=== PATIENT | female | born 1935 | race Caucasian/White ===

== ENCOUNTER → 2017-07-28 | Outpatient (CLI) | payer OTHER ==
[~2017-07-28] MED LIST: ACETAMINOPHEN PM PO; AMLO5 PO; Aspir 8181 MG PO; CALC.25 PO; CHOL10002 PO; CLON.2 PO; ENOX30I SC; FURO40 PO; FURO80 PO; Hydrocodone-Ap1 EA26 PO; LOSA50 PO; Labetalol HCl300 MG PO; MULVITMIND PO; Micro-K10 MEQ PO; STOOL SOFTENER1 EAC4 PO; Zofran4 MG PO
== END ==
LOC: LAB 15:50 → LAB SHORT 15:50
DX: R25.2 Cramp and spasm (principal); M25.50 Pain in unspecified joint
CPT/HCPCS: 84550

== ENCOUNTER 2018-05-09 08:33 | Day surgery (SDC) | payer MEDICARE ==
[~2018-05-09 08:33] MED LIST changes: +WARF5 PO
== END 2018-05-09 23:16 | disposition home or self-care (01) ==
LOC: MOI MAM 08:33
PROC: 0HBT3ZX Excision of Right Breast, Percutaneous Approach, Diagnostic (ICD-10-PCS; principal; 2018-05-09)
DX: N60.21 Fibroadenosis of right breast (principal)
CPT/HCPCS: 19081; 88305

== ENCOUNTER 2018-10-09 11:21 | Day surgery (SDC) | payer MEDICARE, OTHER ==
[~2018-10-09] VITALS: Ht 165.1 cm; Wt 88.0 kg
[~2018-10-09 11:21] MED LIST changes: +ALLO100 PO; -CHOL10002 PO; +DILT120ERA PO; +POTA10T PO; +PROAIR RESPICL90 MCG INH; +TUMS500 MG PO; +VITAMIN D35000 UNIT PO
[2018-10-09] MEDS ORDERED: METO2.5 PO (12:52)
[2018-10-09 13:09] LABS: International Normalized Ratio 1.27; Prothrombin Time Results 13.2 Sec (9.7-11.5)
[2018-10-09 13:33] LABS: Bun/Creatinine Ratio 23.1 (12.0-20.0); Calcium, Blood 9.5 mg/dL (8.5-10.1); Creatinine, Blood 3.12 mg/dL (0.40-1.00); Potassium, Blood 3.8 mmol/L (3.5-5.5)
--- NOTE | 2018-10-09 17:20 | NUR ---
PURSE STRING SUTURES REMOVED FROM LFA FISTULA, MANUAL PRESSURE HELD BY RN AND DR. ESTRADA. PLAN FOR PT TO STAY OVER NIGHT FOR OBSERVATION. PRESSURE STILL BEING HELD AT THIS TIME BY RN. PT TOLERATES WITH NO PAIN. VSS. WILL CONTINUE TO MONITOR.
--- NOTE | 2018-10-09 17:23 | NUR ---
PERMACATH SITE ON RIGHT ANTERIOR CHEST WNL AT THIS TIME.
--- NOTE | 2018-10-09 17:35 | NUR ---
HEMOSTASIS TO LFA OBTAINED TO BOTH SHEATH SITES AFTER APPROX 1 HOUR MANUAL HOLD. NOVA PADS AND DIALYSIS CLAMPS IN PLACE TO BOTH SITES. NO ACTIVE EXTERNAL BLEEDING AT THIS TIME. VSS. PT AOX4.
--- NOTE | 2018-10-09 18:02 | NUR ---
PT AMBULATES TO RESTROOM, UNSTEADY GAIT, ASSISTANCE NEEDED FOR STABILITY. PERMACATH SITE WITH MINIMAL OOZING DOWN RIGHT CHEST, NOVA PAD AND TEGADERM NOW COVERING PERMACATH. 4 LBS WEIGHT PLACED ON SITE. WILL CONTINUE TO MONITOR. VSS.
--- NOTE | 2018-10-09 18:30 | NUR ---
REPORT TO YEMI YOO IN ICU. PT STABLE AT TIME OF TRANSFER. PERSONAL BELONGINGS SENT WITH PT TO ROOM. VSS.
--- NOTE | 2018-10-09 19:20 | NUR ---
FISTULA LFA FISTULA WITH CLAMPS IN PLACE. PT DENIES NUMBNESS OR TINGLING TO LEFT HAND. C/O INCREASING DISCOMFORT IN FOREARM D/T CLAMPS. CLAMPS REMOVED AT THIS TIME AND GAUZE APPLIED TO ACCESS SITES. TRANSPARENT DRSGS APPLIED OVER GAUZE. LFA WITH EXTENSIVE BRUISING NOTED AND SOME SWELLING. BRUISING MARKED WITH PEN TO ASSIST WITH ASSESSING FOR FURTHER BLEEDING. WILL CONTINUE TO MONITOR FOR BLEEDING/HEMATOMA.
--- NOTE | 2018-10-09 20:00 | NUR ---
O2 O2 SATS 87-88% ON RA. RESPIRATIONS EVEN AND UNLABORED. PT STATES THAT SHE SOMETIMES WEARS HER 'S O2 AT HOME. O2 2L NC NOW ON.
--- NOTE | 2018-10-09 22:30 | NUR ---
BEGINGING OF SHIFT: ASSUMED CARE OF PT AT 1900, RECEIVED REPORT FROM YEMI. UPON ENTERING ROOM PT WAS ALERT AND ORIENTED TO SELF AND SITUATION. PT IS ABLE TO FOLLOW COMMANDS. PT'S FISTULA CLAMPS WERE REMOVED AND NO BLEEDING WAS NOTED ON SURGIAL SITE OF THE FISTULA. TEMP CATH WAS ASSESSED AND OOZING AT THE SITE WAS NOTED, A 2LB WEIGHT WAS APPLIED ABOVE THE SITE TO REDUCED THE BLEEDING.PT'S BP WAS ELEVATED AND MEDICATIONS WERE GIVEN PER EMAR. PT HAS TO BE ADVISED NOT TO USE LEFT ARM TO PREVENT BLEEDING. PT STATED THAT SHE USED 2L OF 02 VIA NC AT HOME AT NIGHT. PT'S 02 SATURATIONS DECREASED TO 84% AND SHE WAS THEN PLACED ON 2L OF 02 VIA NC. PT IS CURRENTLY IN A-FIB WITH HR RANGING IN THE 90'S-110'S. PT IS NOT CURRENTLY ON A CHEMICAL PROPHYLACTIC TO PREVENT DVT'S DUE TO BLEED AND ELEVATED ACT. HOWEVER, PT HAS AN ORDER TO RESUME HER ANTICOAGULANT ON 10/10/18. WILL CONTINUE TO MONITOR PT FOR CHANGES. SEE SHIFT ASSESSMENT FOR FULL ASSESSMENT.
--- NOTE | 2018-10-10 05:43 | NUR ---
SHIFT SUMMARY: PT FISTULA SITE SHOWS NO S/S OF BLEEDING, HOWEVER SEVERE BRUSING IS NOTED. DRESSING OF FISTULA IS CLEAN, DRY, AND INTACT. SWELLING AND BRUSING WAS NOTED ON PT'S TEMPORARY CATH SITE, NO SIGNS OF BLEEDING FROM THE SITE WAS SEEN. TEMPORARY CATH DRESSING WAS CHANGED AND SITE WAS CLEANED WITH CHLORHEXIDINE AND COVERED WITH TEGADERM CHG. PT DENIES ANY PAIN, SOB, OR NAUSEA AT THIS TIME. PT HAS BEEN USING THE BSC DURING THE SHIFT, REQUIRING 1+ PERSON MINIMAL ASSISTANCE. WILL CONTINUE TO MONITOR FOR CHANGES UNTIL REPORT IS GIVEN TO ONCOMING SHIFT.
--- NOTE | 2018-10-10 08:00 | NUR ---
ASSUMED CARE OF PATIENT; SEE ASSESSMENT CHARTING FOR DETAILS. PATIENT DENIES ACUTE DISCOMFORT; SOME TENDERNESS TO L FOREARM (INCISIONAL SITES) WITH PALPATION. BRUISING OVER ALL OF L FOREARM WELL SLIGHTLY UP INTO L UAR. GOOD BRUIT AND THRILL TO FISTULA. R ANT. CHEST WITH PERMA CATH. FOR DIALYSIS; DRESSING D/I; BRUISING TO CHEST. RN T/C TO [facility] AND SETUP APPT. FOR 11:30AM DIALYSIS RUN, TODAY, AT CENTER. DISCHARGE INSTRUCTIONS ALREADY FILLED OUT/ORDERED. RN T/C TO [facility] TO FIND OUT WHEN DR. ESTRADA WANTS TO HAVE F/U VISIT WITH PATIENT; WAS INSTRUCTED 4 WEEKS AND RN TO CALL OFFICE AND SETUP APPT.
--- NOTE | 2018-10-10 08:05 | NUR ---
APPOINTMENT SETUP FOR November, AT 3PM TO SEE DR. ESTRADA.
--- NOTE | 2018-10-10 08:15 | NUR ---
IV DC'D TO [facility] WITHOUT INCIDENT; DRESSING PLACED AND SECURED WITH COBAN.
--- NOTE | 2018-10-10 08:25 | NUR ---
DISCHARGE INSTRUCTIONS GIVEN TO PATIENT AND SPOUSE WITH UNDERSTANDING VERBALIZED AND ACKNOWLEDGED WITH WRITTEN UNDERSTANDING.
--- NOTE | 2018-10-10 08:32 | NUR ---
DISCHARGED TO HOME AND WILL GO TO DIALYSIS (OUTPATIENT) AT 15:00 TODAY. TO PRIVATE CAR VIA W/C. BELONGINGS AND DISCHARGE INSTRUCTIONS SENT WITH PATIENT.
== END 2018-10-10 08:40 | disposition home or self-care (01) ==
LOC: MHTC 11:21 → ICUW 18:52 → MHTC 18:52 → ICUW 19:00 → MHTC 10-10 08:40 → ICUW 10-10 08:40
PROVIDERS: Radiology Diagnostic Radiology
DX: I12.0 Hypertensive chronic kidney disease with stage 5 chronic kidney disease or end stage renal disease (principal); N18.6 End stage renal disease; J44.9 Chronic obstructive pulmonary disease, unspecified; I48.91 Unspecified atrial fibrillation; Z88.8 Allergy status to other drugs, medicaments and biological substances; Z79.899 Other long term (current) drug therapy; Z79.52 Long term (current) use of systemic steroids; Z79.01 Long term (current) use of anticoagulants
CPT/HCPCS: 36561; 36902; 76937; 80048; 85347; 85610; 99152; 99153; C1725; C1750; C1769; C1887; C1894; J1644; J2250; J3010; J7030; J7040; Q9967

== ENCOUNTER 2019-03-06 10:19 | Day surgery (SDC) | payer MEDICARE, OTHER ==
[~2019-03-06] VITALS: Ht 167.6 cm; Wt 86.0 kg
[~2019-03-06 10:19] MED LIST changes: +Calcium Acetat667 MG PO; +METO2.5 PO
[2019-03-06] MEDS ORDERED: LABE200 PO (10:51)
[2019-03-06] MEDS ORDERED: WARF5 PO (10:54)
[2019-03-06] MEDS ORDERED: WARF2.5 PO (10:55)
[2019-03-06] MEDS ORDERED: TYLENOL PM PO (10:58)
[2019-03-06] MEDS ORDERED: TUMS500 MG PO (10:59)
[2019-03-06] MEDS ORDERED: RENAL VITAMIN0.8 MG PO (11:02)
--- NOTE | 2019-03-06 13:50 | NUR ---
PT TO RECOVERY POST PROCEDURE. PT IS AWAKE AND ORIENTED, PLEASENT AND COOPERATIVE. PT DENIES PAIN OR DISCOMFORT POST PROCEDURE. MONITOR SR 80'S, B/P 163/72, AFEBRILE, SPO2 97% RA. L FA FISTULA POSITIVE THRILL, NO SWELLING/HEMATOMA, PURSE STRINGS AND CLOTH DOT X 2 INTACT.
--- NOTE | 2019-03-06 15:45 | NUR ---
PURSE STRINGS REMOVED, SLIGHT OOZING AFTER REMOVAL; LIGHT PRESSURE X 5 MIN AND CLOTH DOT PLACED X 2.
--- NOTE | 2019-03-06 15:55 | NUR ---
PT DRESSED SELF WITH MIN ASSISTANCE, FISTULA SITES X 2 NO SWELLING/HEMATOMA, CLOTH DOT DRSGS C,D,I; IV REMOVED-CANNULA INTACT.
--- NOTE | 2019-03-06 16:03 | NUR ---
PT'S FISTULA SITES REMAIN UNCHANGED X 2. PT AND SPOUSE RECEIVED DISCHARGE INSTRUCTIONS, MED LIST AND "AFTER CARE" INSTRUCTIONS; VERBALIZED GOOD UNDERSTANDING. PT LEFT FACILITY VIA W/C, CONDITION STABLE.
== END 2019-03-06 16:03 | disposition home or self-care (01) ==
LOC: MHTC 10:19
DX: T82.858A Stenosis of other vascular prosthetic devices, implants and grafts, initial encounter (principal); Y83.2 Surgical operation with anastomosis, bypass or graft as the cause of abnormal reaction of the patient, or of later complication, without mention of misadventure at the time of the procedure; I12.0 Hypertensive chronic kidney disease with stage 5 chronic kidney disease or end stage renal disease; N18.6 End stage renal disease; J44.9 Chronic obstructive pulmonary disease, unspecified; I48.91 Unspecified atrial fibrillation; Z87.891 Personal history of nicotine dependence; Z99.2 Dependence on renal dialysis; Z79.01 Long term (current) use of anticoagulants; Z79.899 Other long term (current) drug therapy; Z88.8 Allergy status to other drugs, medicaments and biological substances
CPT/HCPCS: 36902; 99152; 99153; C1725; C1769; C1887; C1894; J1644; J2250; J3010; J7030; Q9967

== ENCOUNTER 2019-04-01 15:10 | Emergency (ER) | payer MEDICARE, OTHER ==
[~2019-04-01] VITALS: Ht 167.6 cm; Wt 87.8 kg
[~2019-04-01 15:10] MED LIST changes: +LABE200 PO; +RENAL VITAMIN0.8 MG PO; +TYLENOL PM PO; +WARF2.5 PO
[2019-04-01] MEDS ORDERED: Loratadine10 MG PO (16:44)
== END 2019-04-01 16:49 | disposition home or self-care (01) ==
LOC: ER 15:10
DX: R09.81 Nasal congestion (principal); R05 Cough; I50.9 Heart failure, unspecified; N18.4 Chronic kidney disease, stage 4 (severe); Z79.899 Other long term (current) drug therapy; Z87.891 Personal history of nicotine dependence
CPT/HCPCS: 71046; 99283-25

== ENCOUNTER → 2019-06-10 | Outpatient (CLI) | payer MEDICARE ==
[~2019-06-10] MED LIST changes: +Loratadine10 MG PO
[2019-06-10 16:55] LABS: Source, Urine Clean Catch
[2019-06-10 18:10] LABS: Bilirubin, Urine Neg (Neg); Blood, Urine 2+ (Neg); Glucose Qualitative, Urine Neg (Neg); Ketones, Urine Neg (Neg); Leukocyte Esterase, Urine 2+ (Neg); Nitrite, Urine Neg (Neg); Protein, Urine 3+ (Neg); Specific Gravity, Urine 1.015 (1.003-1.022); Urobilinogen, Urine NORM (Normal)
[2019-06-10 18:27] LABS: Appearance, Urine Hazy (Clear); Color, Urine Yellow (P-Yellow)
[2019-06-10 18:28] LABS: Bacteria Many /hpf; Squamous Epithelial Cells Few /hpf (Few); White Blood Cells, Urine 25-50 /hpf (0-5)
== END | disposition home or self-care (01) ==
LOC: LAB 16:00 → LAB SHORT 16:00
PROVIDERS: Internal Medicine
DX: R35.0 Frequency of micturition (principal)
CPT/HCPCS: 81001; 87086

== ENCOUNTER 2019-12-04 06:09 | Day surgery (SDC) | payer MEDICARE ==
[~2019-12-04] VITALS: Ht 170.2 cm; Wt 89.4 kg
[~2019-12-04 06:09] MED LIST changes: +Coumadin5 MG PO; +HYDRA25 PO; +LOSA25 PO; +METO25ER PO; +METO50ER PO; +NEPHRON FA TAB1 EAC1 PO; +OMEP20ER PO; +VITAMIN D33000 UNIT PO
== END 2019-12-04 08:04 | disposition home or self-care (01) ==
LOC: ORSCSDS 06:09
PROVIDERS: Ophthalmology
PROC: 08RK3JZ Replacement of Left Lens with Synthetic Substitute, Percutaneous Approach (ICD-10-PCS; principal; 2019-12-04 07:30)
DX: H25.12 Age-related nuclear cataract, left eye (principal); I10 Essential (primary) hypertension; I48.0 Paroxysmal atrial fibrillation; Z79.01 Long term (current) use of anticoagulants; Z79.899 Other long term (current) drug therapy
CPT/HCPCS: J2001; J2250; J3010; J3301; J7040; V2632

== ENCOUNTER 2020-01-08 07:10 | Day surgery (SDC) | payer MEDICARE ==
[~2020-01-08] VITALS: Ht 170.2 cm; Wt 91.8 kg
[~2020-01-08 07:10] MED LIST changes: +CLON.1 PO
== END 2020-01-08 09:22 | disposition home or self-care (01) ==
LOC: ORSCSDS 07:10
PROVIDERS: Ophthalmology
PROC: 08RJ3JZ Replacement of Right Lens with Synthetic Substitute, Percutaneous Approach (ICD-10-PCS; principal; 2020-01-08 08:30)
DX: H25.11 Age-related nuclear cataract, right eye (principal); I10 Essential (primary) hypertension; J44.9 Chronic obstructive pulmonary disease, unspecified; I48.91 Unspecified atrial fibrillation; N18.6 End stage renal disease; Z79.01 Long term (current) use of anticoagulants; Z87.891 Personal history of nicotine dependence; Z79.899 Other long term (current) drug therapy
CPT/HCPCS: J2001; J2250; J3010; J3301; J7040; V2632

== ENCOUNTER 2020-01-16 09:57 | Emergency (ER) | payer MEDICARE ==
[~2020-01-16] VITALS: Ht 170.2 cm; Wt 83.9 kg
[2020-01-16 10:59] LABS: BASOPHILS ABSOLUTE AUTO 0.04 K/mm3 (0.00-0.23); BASOPHILS PERCENT AUTO 1 % (0-2); EOSINOPHILS ABSOLUTE AUTO 0.04 K/mm3 (0.00-0.68); EOSINOPHILS PERCENT AUTO 1 % (0-6); Hematocrit 36.7 % (33.0-51.0); Hemoglobin 11.3 g/dL (11.5-16.0); IMMATURE GRAN ABSOLUTE AUTO 0.02 K/mm3 (0.00-0.10); IMMATURE GRAN PERCENT AUTO 0 % (0-1); LYMPHOCYTES ABSOLUTE AUTO 1.32 K/mm3 (0.84-5.20); LYMPHOCYTES PERCENT AUTO 17 % (21-46); MONOCYTES ABSOLUTE AUTO 0.79 K/mm3 (0.16-1.47); MONOCYTES PERCENT AUTO 10 % (4-13); Mean Corpuscular HGB 29.9 pg (26.0-34.0); Mean Corpuscular HGB Conc 30.8 g/dL (31.5-36.5); Mean Corpuscular Volume 97 fL (80-100); Mean Platelet Volume 10.3 fL (9.1-12.4); NEUTROPHILS ABSOLUTE AUTO 5.63 K/mm3 (1.96-9.15); NEUTROPHILS PERCENT AUTO 72 % (41-73); Platelet Count 197 K/mm3 (150-400); RDW Coefficient Variation 14.1 % (11.7-14.2); RDW Standard Deviation 50.2 fL (35.1-46.3); Red Blood Cell Count 3.78 M/mm3 (3.80-5.20); White Blood Cell Count 7.84 K/mm3 (4.00-11.30)
[2020-01-16 11:15] LABS: Albumin, Blood 3.2 g/dL (3.4-5.0); Albumin/Globulin Ratio 1.1 (0.8-1.8); Bilirubin, Total 0.5 mg/dL (0.1-1.0); Bun/Creatinine Ratio 12.1 (12.0-20.0); Calcium, Blood 9.6 mg/dL (8.5-10.1); Creatinine, Blood 4.81 mg/dL (0.40-1.00); Globulin, Blood 2.9 g/dL (2.2-4.0); Potassium, Blood 4.8 mmol/L (3.5-5.5); Total Protein, Blood 6.1 g/dL (6.4-8.2)
--- NOTE | 2020-01-16 14:41 | NUR ---
[facility] CARE VISIT - NOK/proxy decision makers are Princess Juarez, Son [phone] and DIL . New Palliative Care referral received with request from ER nanny/household manager to visit and to assist pt in completing a POLST form today. Pt was recently discharged from the hospital but was very weak and unable to care for herself at home. She has previously discussed CPR and cardiac interventions with her PCP and dish machine operator. She understood from her dish machine operator that conservative and supportive measures would be best vs agressive or invasive life sustaining measures at this time. She wanted to talk further about that and we had an extensive conversation about CPR, respiratory support/ventilation, dialysis and hospital care. Her son, Pepito Juarez was at bedside. He is her surrogate decision maker, along with pt's DIL, Mica Juarez. Pt asked if Mica could be included in the conversation and we telephoned her and put her on speaker phone for the bulk of the conversation. After review of pt's wishes and questions pt verbalizes that she wants to continue her dialysis tx. We discussed what quality of life looks like to her and she feels that dialysis is prolonging her life and quality at this time. If she begins to feel that this tx is prolonging suffering she will make her feelings and wish to d/c dialysis known. At this time, if she became acutely ill, she would still want to return to the hospital for tx of illness, s/s and "fine tuning" if possible. If she is no longer benefiting from that tx or feels she is prolonging her suffering she would be interested in EOL care or hospice at that time. Pt does not want CPR, intubation or feeding tubes as prolongation of life measures. This was all discussed in detail and documented in POLST and signed by DANNA Saenz. PT axel was in progress when I returned to the room so son signed the POLST instead of Bernadette. It appears pt will be discharged home today with HH services. Son stated he and his may need to move pt into their home. She currently lives with her , who is also very debilitated and unable to help her. PT axel reviewed and appreciated. Plan to follow up with pt if she is readmitted to the hospital in the future. Newly completed and signed POLST coppied and sent to medical records for scanning into pt's EMR. Original given to pt's son to place in pt's home and extra copies provided to give to [facility] and pt's PCP. Report given to CM and PA on visit. Order for DNR entered per pt's provider signed POLST form.
== END 2020-01-16 15:28 | disposition home or self-care (01) ==
LOC: ER 09:57
PROVIDERS: Emergency Medicine
DX: R53.1 Weakness (principal); Z72.3 Lack of physical exercise; I11.0 Hypertensive heart disease with heart failure; I50.9 Heart failure, unspecified; J44.9 Chronic obstructive pulmonary disease, unspecified; I48.91 Unspecified atrial fibrillation; Z87.891 Personal history of nicotine dependence; Z79.01 Long term (current) use of anticoagulants; Z79.899 Other long term (current) drug therapy
CPT/HCPCS: 36415; 70450; 80053; 84484; 85025; 93005; 93010; 97162; 99285-25